=== PATIENT | female | born 1965 ===

== ENCOUNTER 2018-11-11 11:34 | Emergency (ER) | payer MEDICAID, OTHER ==
[2018-11-11 11:35] VITALS: BMI 31.8
[2018-11-11 11:45] VITALS: RESP 18; O2SAT 99
[2018-11-11 13:27] VITALS: BP 127/82; PULSE 75; TEMP 98.2
--- NOTE | 2018-11-11 13:33 | ED PDOC ---
Arrival/HPI - General Chief Complaint: ENT Problem Time Seen by Provider: 11/11/18 11:45 Historian: Patient, Spouse - History of Present Illness Narrative History of Present Illness (Text): 11/11/18 13:33 53 y/o female with PMH of anxiety who presents to the ED c/o anterior neck rash x 6 months. Associated mild sore throat x 2 days. Rash is pruritic, erythematous, slightly raised, scaled, non-tender. Pt has tried benadryl and cortisone creams without relief, states it sometimes makes the rash worse. Tolerating PO per baseline. Patient voices concern about her thyroid. No recent travel, changes in soap/detergent/lotions, new jewelry, or sick contacts. Denies fevers, chills, difficulty swallowing, SOB, chest pain, cough, back pain, headache, dizziness, vision changes, or any other associated symptoms. Past Medical History - Provider Review Nursing Documentation Reviewed: Yes - Reproductive Menopause: Yes - Psychiatric Hx Anxiety: Yes Hx Depression: Yes Hx Panic Disorder: Yes Hx Substance Use: No Family/Social History - Physician Review Nursing Documentation Reviewed: Yes Family/Social History: No Known Family HX Smoking Status: Never Smoked Hx Alcohol Use: No Hx Substance Use: No Allergies/Home Meds Allergies/Adverse Reactions: Allergies No Known Allergies Allergy (Verified 11/11/18 11:45) Review of Systems - Physician Review All systems were reviewed & negative as marked: Yes - Review of Systems Constitutional: Normal Eyes: Normal ENT: Sore Throat. absent: Other (difficulty swallowing) Respiratory: Normal. absent: SOB, Cough Cardiovascular: Normal. absent: Chest Pain Gastrointestinal: Normal. absent: Abdominal Pain, Nausea, Vomiting Genitourinary Female: Normal. absent: Dysuria, Frequency Musculoskeletal: Normal. absent: Arthralgias, Back Pain Skin: Rash, Pruritis. absent: Cellulitis Neurological: Normal. absent: Headache, Dizziness Endocrine: Normal Hemo/Lymphatic: Normal. absent: Adenopathy Psychiatric: Normal Physical Exam Vital Signs Reviewed: Yes Vital Signs Temp Pulse Resp BP Pulse Ox 11/11/18 13:25 98.2 F 75 18 127/82 99 11/11/18 11:43 97.9 F 74 18 123/82 99 Temperature: Afebrile Blood Pressure: Normal Pulse: Regular Respiratory Rate: Normal Appearance: Positive for: Well-Appearing, Non-Toxic, Comfortable Pain Distress: None Mental Status: Positive for: Alert and Oriented X 3 - Systems Exam Head: Present: Atraumatic, Normocephalic Pupils: Present: PERRL Extroacular Muscles: Present: EOMI Conjunctiva: Present: Normal. No: Injected Ears: Present: Normal, NORMAL TM, Normal Canal. No: Erythema Mouth: Present: Moist Mucous Membranes Pharnyx: Present: Normal. No: ERYTHEMA, EXUDATE, TONSILS ENLARGED Nose (External): Present: Atraumatic Nose (Internal): Present: Normal Inspection, Moist Neck: Present: Normal Range of Motion, Trachea Midline, Other (rash to anterior neck skin folds [see skin exam], no swelling or tenderness, no masses). No: Meningeal Signs, MIDLINE TENDERNESS, Paraspinal Tenderness, JVD, Lymphadenopathy, Bruit Respiratory/Chest: Present: Clear to Auscultation, Good Air Exchange. No: Respiratory Distress, Accessory Muscle Use Cardiovascular: Present: Regular Rate and Rhythm, Normal S1, S2, Peripheal Pulses Present. No: Murmurs Abdomen: Present: Normal Bowel Sounds. No: Tenderness, Distention, Peritoneal Signs, Rebound, Guarding Back: Present: Normal Inspection Upper Extremity: Present: Normal Inspection, Normal ROM, NORMAL PULSES, Neurovascularly Intact, Capillary Refill < 2s. No: Cyanosis, Edema Lower Extremity: Present: Normal Inspection, NORMAL PULSES, Normal ROM, Neurovascularly Intact, Capillary Refill < 2 s. No: Edema Neurological: Present: GCS=15, CN II-XII Intact, Speech Normal, Motor Func Grossly Intact, Normal Sensory Function, Gait Normal Skin: Present: Warm, Dry, Rashes (scaled, erythematous, blanchable rash to skin folds of anterior neck; two areas of redness have central clearings, one to left neck, one to right), Normal Color Psychiatric: Present: Alert, Oriented x 3, Normal Insight, Normal Concentration Medical Decision Making ED Course and Treatment: Initial Plan: * Rapid Strep Patient's thyroid exam is normal. Rash suspicious of tinea corporis, will give Clotrimazole prescription and recommend outpatient followup for thyroid concerns. Patient given information for clinic, states she will followup. Diagnostic testing results and plan of care discussed with patient. Strict instructions given regarding prescription use, importance of followup, and signs/symptoms to return to the ER, including difficulty swallowing, SOB, fever, chills, or any other new/worsening symptoms. Pt is A&Ox3, ambulating with steady gait, with vital signs stable for discharge. - Lab Interpretations Lab Results: Lab Results 11/11/18 12:22: Grp A Beta Strep Ag Negative Disposition/Present on Arrival - Present on Arrival Any Indicators Present on Arrival: No History of DVT/PE: No History of Uncontrolled Diabetes: No Urinary Catheter: No History of Decub. Ulcer: No History Surgical Site Infection Following: None - Disposition Have Diagnosis and Disposition been Completed?: Yes Diagnosis: Tinea corporis Disposition: HOME/ ROUTINE Disposition Time: 13:00 Patient Plan: Discharge Condition: STABLE Discharge Instructions (ExitCare): Ringworm Print Language: TAMAZIGHT Additional Instructions: Use cream twice daily on clean skin for 4 weeks, or 1 week after rash has healed Followup with clinic within 2 days Return to ER with any new/worsening symptoms Prescriptions: Clotrimazole [Antifungal Ringworm] 14.2 gm TD Q12H #1 tube Referrals: [facility] [Outside] - Follow up with primary [facility] [Outside] - Follow up with primary Kari Reina MD [Medical Doctor] - Follow up with primary Forms: [employer] ([place]), WORK NOTE
== END 2018-11-11 13:25 | disposition home or self-care (01) ==
LOC: ED 11:34
DX: B35.4 Tinea corporis (principal)